=== PATIENT | male | born 1960 | race Caucasian/White ===

== ENCOUNTER 2019-03-22 11:38 | Inpatient (IN) | payer MEDICAID ==
[~2019-03-22] VITALS: Ht 175.3 cm; Wt 72.6 kg
[2019-03-22 11:48] VITALS: BP 153/102
--- NOTE | 2019-03-22 11:52 | NUR ---
Patient ambulated to bed 6. RN evaluating patient at bedside.
--- NOTE | 2019-03-22 12:00 | NUR ---
PT COMPLAINING OF PAIN 7/10 AT LFT LOWER LEG DUE TO INSECT BITE X 3 WEEKS. PT HAS OPEN WOUND, DARINAGE NOTED SLIGHT SEROUS SAINGENIOUS. NO ODOR NOTED AT THIS TIME. HAS REDNESS, WARM TO TOUCH THE PERIPHERAL REGION, 1+ PITTING EDEMA AT THE SURROUDING TISSUE. PT PEDAL PULSE PRESENCE, CAP REILL WITHIN NORMAL REGION, MOVEMENT OF LEG PRESENT. PT SEEN BY MD AT THE BEDSIDE. WILL CONTINUE TO MOTIOR PT.
--- NOTE | 2019-03-22 12:02 | NUR ---
Dr. Benavides evaluating patient at bedside.
[2019-03-22] MEDS ORDERED: NACL 0.9% 2,000 ML IV SCH (12:12)
[2019-03-22] MEDS ORDERED: KETOROLAC 60 MG/2 ML VIAL IM ONE (12:15)
[2019-03-22] MEDS ORDERED: PIPERACILLIN/TAZOBACTAM 3.375 GM in DEXT 5% MINI-BAG PLUS 50 ML IV ONE (12:15)
--- NOTE | 2019-03-22 12:52 | NUR ---
US tech at bedside for exam.
[2019-03-22] MEDS ORDERED: PIPERACILLIN/TAZOBACTAM 3.375 GM VIAL IV ONE (12:58)
--- NOTE | 2019-03-22 13:05 | NUR ---
XRAY AT BEDSIDE
[2019-03-22 13:14] LABS: BASOPHILS % (AUTO) 0.2 % (0.0-2.0); EOSINOPHILS # (AUTO) 0.1 K/uL (0-0.4); EOSINOPHILS % (AUTO) 0.7 % (0.0-4.0); HEMATOCRIT 37.9 % (36-52); HEMOGLOBIN 12.5 g/dL (12.0-18.0); LYMPHOCYTES # (AUTO) 1.4 K/uL (2.0-11.5); LYMPHOCYTES % (AUTO) 13.3 % (20.5-51.1); MEAN CORPUSCULAR HEMOGLOBIN 30 pg (27-31); MEAN CORPUSCULAR HGB CONC 33 g/dL (33-37); MEAN CORPUSCULAR VOLUME 89.9 fL (80-94); MONOCYTES # (AUTO) 1.2 K/uL (0.8-1.0); MONOCYTES % (AUTO) 11.5 % (1.7-9.3); NEUTROPHILS # (AUTO) 7.9 K/uL (1.8-7.7); NEUTROPHILS % (AUTO) 74.3 % (42.2-75.2); PLATELET COUNT (AUTO) 324 K/uL (140-450); RED BLOOD CELL COUNT(AUTO) 4.21 MIL/uL (4.20-6.10); RED CELL DISTRIBUTION WIDTH 14.2 % (11.6-13.7); WHITE BLOOD COUNT (AUTO) 10.7 K/uL (4.8-10.8)
--- NOTE | 2019-03-22 13:16 | NUR ---
pts wound was cleaned with saline and then coverred with a non adherent gauze
[2019-03-22 13:30] LABS: ANION GAP 8.6 (8-16); CARBON DIOXIDE 29.1 mmol/L (21-32); CREATININE 0.9 mg/dL (0.7-1.3); POTASSIUM 3.7 mmol/L (3.5-5.1)
[2019-03-22 13:36] LABS: ALBUMIN 2.9 g/dL (3.4-5.0); MAGNESIUM 2.2 mg/dL (1.8-2.4); TOTAL BILIRUBIN 0.4 mg/dL (0.0-1.0)
--- NOTE | 2019-03-22 13:59 | NUR ---
CHECKED ON PT. PT UNABLE TO PEE AT THIS TIME. URINAL AT BEDSIDE. PT AWARE OF URINE NEEDS TO BE COLLECTED.
[2019-03-22] MEDS ORDERED: DOCUSATE SODIUM 100 MG GELCAP PO PRN (14:00)
[2019-03-22] MEDS ORDERED: ONDANSETRON 4 MG/2 ML VIAL IM/IVP PRN (14:00)
[2019-03-22] MEDS ORDERED: HYDROcodone/APAP 7.5/325 MG 1 TAB PO PRN (14:00)
[2019-03-22] MEDS ORDERED: ACETAMINOPHEN 325 MG TAB PO PRN (14:00)
[2019-03-22 14:40] VITALS: BP 146/88
--- NOTE | 2019-03-22 14:40 | NUR ---
Patient will be admitted to care of . Admited to . Will go to room. Belongings list completed. Report to .
--- NOTE | 2019-03-22 14:40 | NUR ---
PT ADMITTED TO [facility] , REPORT GIVEN TO GEE BEE. PT VS STABLE.
--- NOTE | 2019-03-22 14:40 | NUR ---
RECEIVED REPORT FROM ED NURSE. PT ARRIVED VIA GURNEY, AND TRANSFERRED SELF WITH STEADY GAIT AND STANDBY ASSISTANCE TO [facility] BED. PT IS AAOX4, CALM AND COOPERATIVE. RESPIRATIONS ARE EVEN AND UNLABORED ON RA. IV ON LT HAND 18 GA IS PATENT AND RUNNING IVF PER ORDER. IV DRESSING IS CLEAN, DRY AND INTACT. STOMACH IS FLAT AND SOFT, ACTIVE BOWEL SOUNDS ON ALL QUADRANTS, LBM REPORTED ON 03/21/19. SKIN COLOR IS APPROPRIATE TO ETHNICITY, WARM TO TOUCH. LEFT LEG CELLULITIS NOTED AND SCABS THROUGHOUT BUE/BLE. 1+ PITTING EDEMA TO BILATERAL LOWER EXTREMITIES. REVIEWED PLAN OF CARE WITH PT. PT VERBALIZED UNDERSTANDING. SAFETY MEASURES IN PLACE, BED ON LOW POSITIONS WITH SIDE RAILS X2. WILL CONTINUE TO MONITOR. Addendum: 03/22/19 at 1857 by Neda Lau RN CORRECTION: 1+ PTTING EDEMA TO LT LEG, AREA OF CELLULITIS.
[2019-03-22] MEDS: NACL 0.9% 1,000 ML IV SCH (15:00)
[2019-03-22 15:07] LABS: FREE T4 (FREE THYROXINE) 0.99 ng/dL (0.76-1.46); PHOSPHORUS 3.2 mg/dL (2.5-4.9); THYROID STIMULATING HORMONE 1.22 uIU/mL (0.34-3.74)
[2019-03-22 16:22] LABS: APPEARANCE,URINE HAZY (CLEAR); BILIRUBIN,URINE NEGATIVE (NEGATIVE); BLOOD, URINE NEGATIVE (NEGATIVE); COLOR,URINE YELLOW (YELLOW); LEUKOCYTE ESTERASE ,URINE TRACE (NEGATIVE); NITRITE, URINE NEGATIVE (NEGATIVE); UGLUCOSE NEGATIVE (NEGATIVE)
[2019-03-22 16:31] LABS: RBC,URINE 0-5 /HPF (0-5); WBC,URINE 16-25 (MOD) /HPF (0-5)
[2019-03-22 16:32] LABS: URINE AMORPHOUS URATE 2+ /HPF (None Seen)
[2019-03-22 16:36] LABS: BARBITURATE, URINE NEG. ng/ml (NEG <=200); BENZODIAZEPINE, URINE NEG. ng/mL (NEG <=200); CANNABINOID, URINE POS. ng/mL (NEG <=50); COCAINE, URINE NEG. ng/mL (NEG <=300); OPIATE, URINE NEG. ng/mL (NEG <=2000); PHENCYCLIDINE SCREEN,URINE NEG. ng/mL (NEG <=25)
--- NOTE | 2019-03-22 17:15 | NUR ---
REVIEWED EKG ORDER WITH DR. MELVA CHUN DIRECTOR OF PUBLIC WORKS TO READ CHANGE TO DR LYNCH
--- NOTE | 2019-03-22 18:00 | NUR ---
DR. ARROYO AT BEDSIDE. WOUND DRESSING ORDER RECEIVED. CLEANSE LT LOWER LEG CELLULITIS GENTLY WITH NS, PAT DRY, COVER WITH 4X4 DRESSING AND WRAP WITH KERLIX DAILY AND PRN.
--- NOTE | 2019-03-22 18:10 | NUR ---
WOUND DRESSING CHANGED. MINIMAL DISCHARGE AND NO ODOR NOTED. PT TOLERATED WELL. PT SIGNED CONSENT FOR PROCEDURE TO BE DONE TOMORROW. PT VERBALIZED UNDERSTANDING, QUESTIONS WERE CLARIFIED.
--- NOTE | 2019-03-22 19:10 | NUR ---
REPORT GIVEN TO LOUNGE CAR ATTENDANT NURSE FOR CONTINUITY OF CARE. PT IS IN NO DISTRESS AT THIS TIME.
--- NOTE | 2019-03-22 19:30 | NUR ---
RECEIVED BEDSIDE REPORT FROM DAY SHIFT RN, PATIENT IN BED, ON RA, NO SIGNS OF ACTE DISTRESS. PATIENT DENIES PAIN, NOTED LEFT LEG CELLULITIS, DRESSING INTACT, NOTED SCABS IN RIGHT LEG, CLOSED. IV IN RIGHT AC 22 G. PATIENT ASKED FOR SANDWICH WILL GIVE SANDWICH. Addendum: 03/23/19 at 0110 by Odessa Thomas RN LEFT FA 18 INFUSING NS AT 60
[2019-03-22] MEDS: AMPICILLIN/SULBACTAM 3 GM in NACL 0.9% 100 ML IV SCH (20:31)
--- NOTE | 2019-03-22 20:34 | NUR ---
DUE UNASYN GIVEN
--- NOTE | 2019-03-22 23:00 | NUR ---
PATIENT SLEEPING IN BED CALL LIGHT WITHIN REACH WILL CONTINUE TO MONITOR
[2019-03-23] VITALS (9 sets, daily range): BP systolic 143–165; BP diastolic 89–98
--- NOTE | 2019-03-23 00:46 | NUR ---
PRE OP QUESTIONS ANSWERED, DRESSING ON LEFT LEG CELLULITIS CLEAN AND INTACT.
--- NOTE | 2019-03-23 03:52 | NUR ---
SLEEPING IN BED, CALL LIGHT WITHIN REACH, WILL CONTINUE TO MONITOR
[2019-03-23] MEDS: AMPICILLIN/SULBACTAM 3 GM in NACL 0.9% 100 ML IV SCH ×3 (04:33→20:42)
[2019-03-23] MEDS: NACL 0.9% 1,000 ML IV SCH ×3 (06:00→13:01)
[2019-03-23 06:21] LABS: T4 (THYROXINE) 5.4 ug/dL (4.5-12.0)
[2019-03-23 06:24] LABS: BASOPHILS % (AUTO) 0.3 % (0.0-2.0); EOSINOPHILS # (AUTO) 0.1 K/uL (0-0.4); EOSINOPHILS % (AUTO) 1.2 % (0.0-4.0); HEMATOCRIT 35.2 % (36-52); HEMOGLOBIN 11.9 g/dL (12.0-18.0); LYMPHOCYTES # (AUTO) 1.4 K/uL (2.0-11.5); LYMPHOCYTES % (AUTO) 12.1 % (20.5-51.1); MEAN CORPUSCULAR HEMOGLOBIN 30 pg (27-31); MEAN CORPUSCULAR HGB CONC 34 g/dL (33-37); MEAN CORPUSCULAR VOLUME 89.1 fL (80-94); MONOCYTES % (AUTO) 8.6 % (1.7-9.3); NEUTROPHILS # (AUTO) 9.3 K/uL (1.8-7.7); NEUTROPHILS % (AUTO) 77.8 % (42.2-75.2); PLATELET COUNT (AUTO) 326 K/uL (140-450); RED BLOOD CELL COUNT(AUTO) 3.95 MIL/uL (4.20-6.10); RED CELL DISTRIBUTION WIDTH 13.8 % (11.6-13.7); WHITE BLOOD COUNT (AUTO) 11.9 K/uL (4.8-10.8)
--- NOTE | 2019-03-23 06:26 | NUR ---
LABS DRAWN AND SENT TO LAB
[2019-03-23 06:35] LABS: ANION GAP 11.6 (8-16); CARBON DIOXIDE 25.2 mmol/L (21-32); CREATININE 0.9 mg/dL (0.7-1.3); POTASSIUM 3.8 mmol/L (3.5-5.1)
--- NOTE | 2019-03-23 07:24 | NUR ---
RECEIVED BEDSIDE REPORT FROM GEE VILLALOBOS. PT STABLE, SLEEPING, BUT EASILY AROUSABLE. NO SIGNS OF DISTRESS NOTED. NO REDNESS, SWELLING, OR INFLAMMATION NOTED ON IV SITE. PT NPO FOR SCHEDULED I&D TODAY. CALL LUCERO WITHIN REACH. BED IN LOWEST POSITION. SAFETY MEASURES IN PLACE. PLAN OF CARE REVIEWED.
--- NOTE | 2019-03-23 07:25 | NUR ---
ENDORSED PATIENT TO DAY SHIFT NURSE FOR CONTINUITY OF CARE. PATIENT STABLE.
--- NOTE | 2019-03-23 09:48 | NUR ---
PT STABLE, AAOX4, NO SIGNS OF DISTRESS NOTED. AWAITING ON SURGERY.
--- NOTE | 2019-03-23 10:05 | NUR ---
PT WAS TAKEN TO THE OR FOR I&D OF THE LEFT LEG CELLULITIS.
[2019-03-23] MEDS ORDERED: PROPOFOL 200 MG/20 ML VIAL IV ONE (10:43)
[2019-03-23] MEDS ORDERED: KETAMINE 500 MG/5 ML VIAL ONE (10:48)
[2019-03-23] MEDS ORDERED: MIDAZOLAM 2 MG/2 ML VIAL ONE (10:49)
[2019-03-23] MEDS ORDERED: BUPIVACAINE-MPF/EPI 0.25% 30 ML VIAL INJ ONE (10:58)
[2019-03-23] MEDS ORDERED: ONDANSETRON 4 MG/2 ML VIAL IVP PRN (11:00)
[2019-03-23] MEDS ORDERED: HYDROmorphone 1 MG/ML AMP IVP PRN (11:00)
[2019-03-23] MEDS ORDERED: HYDROGEN PEROXIDE 3% 240 ML BTL TP ONE (11:01)
--- NOTE | 2019-03-23 12:00 | NUR ---
PT CAME BACK IN THE UNIT FROM OR. RECEIVED BEDSIDE REPORT FROM STRATEGIC ACCOUNT DIRECTORGEE CAMPBELL. VITAL SIGNS TAKEN, PT STABLE. NO SIGNS OF DISTRESS NOTED.
[2019-03-23] MEDS: LIDOCAINE/EPI MPF 1%1:200000 30 ML VIAL INJ ONE ×2 (12:20→14:03)
--- NOTE | 2019-03-23 12:46 | NUR ---
ADMINISTERED SCHEDULED MEDICATION, PT TOLERATED WELL. NO OTHER NEEDS AT THIS TIME.
--- NOTE | 2019-03-23 14:00 | NUR ---
D/C IV ON LEFT FA 18G DUE TO INFILTRATION, CATHETER TIP INTACT, BLEEDING CONTROLLED. INSERTED ANOTHER IV ON RIGHT FA 20G, ASYMPTOMATIC, INTACT, AND PATENT. PT TOLERATED WELL. NO OTHER NEEDS AT THIS TIME.
--- NOTE | 2019-03-23 16:30 | NUR ---
VITAL SIGNS TAKEN, BP 165/97. MADE DR MIRANDA AWARE OF PT'S BP. MD WILL PUT IN NEW ORDER.
[2019-03-23] MEDS ORDERED: LISINOPRIL 5 MG TAB PO SCH (16:50)
--- NOTE | 2019-03-23 16:50 | NUR ---
DR MIRANDA PUT IN ORDER FOR LISINOPRIL AND HYDROCHLOROTHIAZIDE FOR PT'S BP 165/97. PER DR MIRANDA, GIVE LISINOPRIL ONLY AT THIS TIME AND ENDORSE HYDROCHLOROTHIAZIDE TO PM NURSE TO PREVENT PT'S BP FROM DECREASING DRASTICALLY. WAITING FOR PHARMACY TO VERIFY MEDICATIONS.
--- NOTE | 2019-03-23 17:57 | NUR ---
PHARMACY JUST VERIFIED LISINOPRIL AND HYDROCHLOROTHIAZIDE. ADMINISTERED SCHEDULED LISINOPRIL PER DR MIRANDA'S ORDER. PER DR MIRANDA, GIVE LISINOPRIL ONLY AT THIS TIME AND ENDORSE SCHEDULED HYDROCHLOROTHIAZIDE TO PM NURSE TO BE GIVEN AT 2100.
--- NOTE | 2019-03-23 19:20 | NUR ---
ENDORSED PT TO GEE ROCHA FOR CONTINUITY OF CARE. PT STABLE.
--- NOTE | 2019-03-23 19:21 | NUR ---
RECEIVED BEDSIDE REPORT FROM AM SHIFT NURSE. PT AWAKE, ALERT, O, X 4 STABLE, NO SIGNS OF DISTRESS NOTED. POST I&D TODAY, W/ DRESSING IN PLACE, DRY. W/ ONGOING IV ON THE R FA G 20. CALL LUCERO WITHIN REACH. BED IN LOWEST POSITION. SAFETY MEASURES IN PLACE. PLAN OF CARE REVIEWED.
[2019-03-23] MEDS: HYDROCHLOROTHIAZIDE 25 MG TAB PO SCH ×2 (20:41→21:16)
--- NOTE | 2019-03-23 21:13 | NUR ---
DR. KENNY INFORMED, WAS ENDORSED BY AM SHIFT TO GIVE THE 1650 MEDS FOR 2100. AWARE AND SAID TO GO AHEAD TO GIVE THE ORETIC(BOP MEDS) BOP 156/90 AND HR 73
--- NOTE | 2019-03-23 21:50 | NUR ---
LAB CALLED FOR CRITICAL RESULT: LEG ABSCESS CULTURE: MANY OPRESUMPTIVE MRSA; MANY B-GRP STREP A DR. CANNON INFORMED
--- NOTE | 2019-03-23 22:09 | NUR ---
MRSA POSITIVE NARES REPORTED BY LAB MENARD
--- NOTE | 2019-03-24 03:26 | NUR ---
PLACED CHLORHEXIDINE ORDERED BT ON BOTH NOSTRILS, PT TOLERATED WELL.
[2019-03-24 04:00] VITALS: BP 124/91
[2019-03-24] MEDS: AMPICILLIN/SULBACTAM 3 GM in NACL 0.9% 100 ML IV SCH ×2 (05:12→12:36)
[2019-03-24] MEDS: NACL 0.9% 1,000 ML IV SCH (06:16)
--- NOTE | 2019-03-24 06:16 | NUR ---
FNS consult received on 03/22/19 for wound/pressure ulcer (cellulitis). Consult reason does not meet high risk criteria per hospital policy. Patient will be seen and assessed according to the nutrition care policy. Oumou Godoy MS, RDN
--- NOTE | 2019-03-24 06:31 | NUR ---
PATIENT HAS BEEN SCREENED AND CATEGORIZED LOW NUTRITION RISK. PATIENT WILL BE SEEN WITHIN 7 DAYS OF ADMISSION. 03/29/19 QIANA JUAREZ MS, RDN
--- NOTE | 2019-03-24 07:20 | NUR ---
ENDORSED TO NEXT SHIFT FOR CONTINUITY OF CARE, PT IN STABLE CONDITION AT THIS TIME
--- NOTE | 2019-03-24 07:21 | NUR ---
RECEIVED BEDSIDE REPORT FROM NIGHT NURSE. PT HAS 60 ML/HR NS IN RIGHT FOREARM IV ASYMPTOMATIC AND PATENT. ALL SAFETY MEASURES IN PLACE, CALL LIGHT WITHIN REACH. PT AOX4, BREATHING UNLABORED NO DISTRESS AT THIS TIME. PT HAS LEFT SYED BANDAGE THAT IS DRY AND INTACT.
[2019-03-24 08:00] VITALS: BP 145/92
--- NOTE | 2019-03-24 08:00 | NUR ---
DR ARZOLA AT BEDSIDE REQUESTING I REMOVE BANDAGE SO HE CAN ASSESS. DID THIS AND THEN HE STATED HE WANTS EITHER IDOFORM GAUZE PACKED OR DRY GAUZE PACKED AND THEN 4X4 ON TOP AND WRAPPED WITH KERLIX SECURE WITH TAPE. PERFORMED THIS WOUNDCARE AT THIS TIME. PT TOLERATED WELL, NO SIGNS OF DISTRESS.
[2019-03-24 08:08] LABS: BASOPHILS % (AUTO) 0.5 % (0.0-2.0); EOSINOPHILS # (AUTO) 0.1 K/uL (0-0.4); EOSINOPHILS % (AUTO) 1.4 % (0.0-4.0); HEMATOCRIT 36.4 % (36-52); HEMOGLOBIN 12.3 g/dL (12.0-18.0); LYMPHOCYTES # (AUTO) 1.8 K/uL (2.0-11.5); LYMPHOCYTES % (AUTO) 17.4 % (20.5-51.1); MEAN CORPUSCULAR HEMOGLOBIN 30 pg (27-31); MEAN CORPUSCULAR HGB CONC 34 g/dL (33-37); MEAN CORPUSCULAR VOLUME 89.1 fL (80-94); MONOCYTES # (AUTO) 1.1 K/uL (0.8-1.0); MONOCYTES % (AUTO) 10.6 % (1.7-9.3); NEUTROPHILS # (AUTO) 7.4 K/uL (1.8-7.7); NEUTROPHILS % (AUTO) 70.1 % (42.2-75.2); PLATELET COUNT (AUTO) 366 K/uL (140-450); RED BLOOD CELL COUNT(AUTO) 4.09 MIL/uL (4.20-6.10); RED CELL DISTRIBUTION WIDTH 13.7 % (11.6-13.7); WHITE BLOOD COUNT (AUTO) 10.5 K/uL (4.8-10.8)
[2019-03-24 09:00] LABS: ANION GAP 12.6 (8-16); CARBON DIOXIDE 25.3 mmol/L (21-32); CREATININE 0.9 mg/dL (0.7-1.3); POTASSIUM 3.9 mmol/L (3.5-5.1)
[2019-03-24] MEDS: LISINOPRIL 10 MG TAB PO SCH (09:49)
[2019-03-24] MEDS: CHLORHEXADINE GLUC 2% CLOTH TP SCH (09:49)
[2019-03-24] MEDS: MUPIROCIN CA NASAL 2% 1GM TUBE NS SCH (09:49)
--- NOTE | 2019-03-24 09:54 | NUR ---
ADMINISTERED MEDICATIONS INCLUDING WIPING PATIENT SKIN WITH CHLORHEXIDINE WIPES. PT TOLERATED WELL NO SIGNS OF DISTRESS AT THIS TIME. PT REQUESTING MORE PANCAKES WILL CALL FNS.
[2019-03-24] MEDS ORDERED: LACTOBACILLUS RHAMNOSUS GG 1 EACH CAP PO SCH (10:30)
--- NOTE | 2019-03-24 10:44 | NUR ---
ADMINISTERED MEDICATIONS, PT SITTING UP IN BED EATING HIS SANDWICH WITH NO DISTRESS AND NO REQUESTS AT THIS TIME.
--- NOTE | 2019-03-24 11:00 | NUR ---
RECEIVED PHONE CALL FROM PT GIRLFRIEND REQUESTING TO TALK TO HIM. HELPED PATIENT MAKE PHONE CALL TO CALL HER. NO OTHER REQUESTS.
--- NOTE | 2019-03-24 12:18 | NUR ---
PT SITTING UP IN BED EATING LUNCH WITH NO REQUESTS AT THIS TIME.
[2019-03-24] MEDS ORDERED: CLINDAMYCIN 900 MG in DEXTROSE 5% 100 ML IV SCH (13:00)
--- NOTE | 2019-03-24 14:09 | NUR ---
ADMINISTERED IV MEDICATION. PATIENT RESTING IN BED NO REQUESTS NO SIGNS OF DISTRESS.
--- NOTE | 2019-03-24 15:35 | NUR ---
PT SLEEPING IN BED NO LABORED BREATHING OR SIGNS OF DISTRESS. DRESSING DRY AND INTACT.
[2019-03-24 16:00] VITALS: BP 139/85
--- NOTE | 2019-03-24 16:40 | NUR ---
PT SLEEPING IN BED BREATHING UNLABORED AND EVEN.
--- NOTE | 2019-03-24 17:52 | NUR ---
PT SITTING UP IN BED WATCHING TV. DENIES ANY REQUESTS AT THIS TIME. NO OBVIOUS SIGNS OF DISTRESS, BREATHING IS UNLABORED.
[2019-03-24] MEDS ORDERED: VANCOMYCIN PER PHARMACY MC PRN (18:05)
[2019-03-24] MEDS ORDERED: VANCOMYCIN 1,000 MG VIAL ONE (18:46)
[2019-03-24] MEDS ORDERED: VANCOMYCIN 1GM/DEXT 5% PREMIX 200 ML IV ONE (19:00)
--- NOTE | 2019-03-24 19:30 | NUR ---
GAVE BEDSIDE REPORT TO NIGHT NURSE PT WAS WONDERING HALLS. EXPLAINED TO PT THAT HE IS ON CONTACT FOR THE MRSA OF THE NARES AND PROVIDED HIM WITH A MASK. CHARGE NURSE EXPLAINED TO HIM THAT HE HAS TO STAY IN HIS ROOM FOR HIS CONTACT ISOLATION.
--- NOTE | 2019-03-24 19:31 | NUR ---
RECEIVED BEDSIDE REPORT FROM DAY SHIFT RN KANG. PT A/O X4. DISCUSSED PLAN OF CARE. VERBALIZED UNDERSTANDING. ABLE TO MAKE NEEDS KNOWN. CONTACT PRECAUTIONS MRSA-NARES. ROOM AIR. NO SIGNS OF RESP DISTRESS. SKIN IS NON INTACT. LEFT LEG CELLULITIS. DRESSING IS CLEAN DRY AND INTACT. R FA 20 G INFUSING NS @60. PATENT AND INTACT. ABLE TO AMBULATE WITHOUT ASSIST. STEADY GAIT. BED IN LOW POSITION. CALL LIGHT WITHIN REACH. WILL CONTINUE TO MONITOR.
--- NOTE | 2019-03-24 20:57 | NUR ---
REQUESTED ICE WATER AND COFFEE. GIRLFRIEND AT BEDSIDE. PT STATED HE IS NON COMPLIANT WITH TAKING HTN MEDS AT HOME DUE TO ALWAYS BEING UP AND ACTIVE SO HE FEELS HE DOESN'T NEED THEM. I EDUCATED ON IMPORTANCE OF TAKING HOME MEDICATIONS PRESCRIBED, SIDE EFFECTS AND WHAT EACH MEDICATION IS FOR. VERBALIZED UNDERSTANDING. WILL CONTINUE TO MONITOR.
--- NOTE | 2019-03-24 23:00 | NUR ---
REQUESTED SANDWICH AND WATER. REPOSITIONED. DENIES PAIN. NO SIGNS OF RESP DISTRESS. WILL CONTINUE TO MONITOR.
[2019-03-25] VITALS: BP 126/89
--- NOTE | 2019-03-25 01:13 | NUR ---
PT IS SLEEPING. EASILY AROUSABLE. EVEN CHEST RISE NOTED. NO SIGNS OF DISTRESS OR DISCOMFORT. BED IN LOW POSITION. WILL CONTINUE TO MONITOR.
--- NOTE | 2019-03-25 03:13 | NUR ---
SLEEPING IN BED. EASILY AROUSABLE. DENIES PAIN. NO SIGNS OF DISTRESS NOTED. WILL CONTINUE TO MONITOR.
--- NOTE | 2019-03-25 05:15 | NUR ---
PT SLEEPING IN BED NO SIGNS OF DISTRESS. EVEN CHEST RISE. NO PAIN AT THIS TIME. CALL LIGHT WITHIN REACH. WILL CONTINUE TO MONITOR.
--- NOTE | 2019-03-25 06:20 | NUR ---
WILL ENDORSE PT TO DAY SHIFT RN. PT IS IN STABLE CONDITION. A/O X 4 ABLE TO MAKE NEEDS KNOWN. CALL LIGHT WITHIN REACH.
[2019-03-25 06:52] LABS: BASOPHILS # (AUTO) 0.1 K/uL (0.00-0.22); BASOPHILS % (AUTO) 0.7 % (0.0-2.0); EOSINOPHILS # (AUTO) 0.2 K/uL (0-0.4); EOSINOPHILS % (AUTO) 2.6 % (0.0-4.0); HEMATOCRIT 33.6 % (36-52); HEMOGLOBIN 11.1 g/dL (12.0-18.0); LYMPHOCYTES # (AUTO) 1.6 K/uL (2.0-11.5); LYMPHOCYTES % (AUTO) 23.7 % (20.5-51.1); MEAN CORPUSCULAR HEMOGLOBIN 30 pg (27-31); MEAN CORPUSCULAR HGB CONC 33 g/dL (33-37); MEAN CORPUSCULAR VOLUME 89.8 fL (80-94); MONOCYTES # (AUTO) 0.7 K/uL (0.8-1.0); MONOCYTES % (AUTO) 9.4 % (1.7-9.3); NEUTROPHILS # (AUTO) 4.4 K/uL (1.8-7.7); NEUTROPHILS % (AUTO) 63.6 % (42.2-75.2); PLATELET COUNT (AUTO) 332 K/uL (140-450); RED BLOOD CELL COUNT(AUTO) 3.75 MIL/uL (4.20-6.10); RED CELL DISTRIBUTION WIDTH 14.1 % (11.6-13.7); WHITE BLOOD COUNT (AUTO) 6.9 K/uL (4.8-10.8)
--- NOTE | 2019-03-25 07:16 | NUR ---
RECEIVED REPORT FROM LAYOUT WORKER NURSE MICHAEL FOR CONTINUITY OF CARE. PT IN STABLE CONDITION. RESPIRATIONS EVEN AND UNLABORED. IV INTACT AND PATENT. SAFETY MEASURES IN PLACE. BED IN LOW POSITION. CALL LIGHT AT BEDSIDE, USE INSTRUCTIONS GIVEN. WILL CONTINUE TO MONITOR.
[2019-03-25 07:17] LABS: ANION GAP 11.9 (8-16); CARBON DIOXIDE 24.8 mmol/L (21-32); CREATININE 0.9 mg/dL (0.7-1.3); MAGNESIUM 1.9 mg/dL (1.8-2.4); PHOSPHORUS 3.5 mg/dL (2.5-4.9); POTASSIUM 3.7 mmol/L (3.5-5.1)
[2019-03-25 08:00] VITALS: BP 124/88
[2019-03-25] MEDS: NACL 0.9% 1,000 ML IV SCH (08:38)
[2019-03-25] MEDS ORDERED: LACTOBACILLUS RHAMNOSUS GG 1 EACH CAP PO SCH (09:00)
[2019-03-25] MEDS ORDERED: VANCOMYCIN 1GM/DEXT 5% PREMIX 200 ML IV SCH (09:00)
[2019-03-25] MEDS ORDERED: CEPH-1019 PO (09:08)
[2019-03-25] MEDS ORDERED: SULF-59 PO (09:08)
[2019-03-25] MEDS ORDERED: INUL1CTB PO (09:08)
--- NOTE | 2019-03-25 09:15 | NUR ---
GAVE MORNING MEDICATIONS AT THIS TIME. PT TOLERATED WELL. CALL LIGHT AT BEDSIDE. BED IN LOW POSITION. WILL CONTINUE TO MONITOR.
[2019-03-25] MEDS: LISINOPRIL 10 MG TAB PO SCH (09:21)
[2019-03-25] MEDS: MUPIROCIN CA NASAL 2% 1GM TUBE NS SCH (09:21)
[2019-03-25] MEDS: CHLORHEXADINE GLUC 2% CLOTH TP SCH (09:22)
--- NOTE | 2019-03-25 10:07 | NUR ---
WOUND CARE EVALUATION NOTE: REASON FOR EVALUATION: LEFT LOWER LEG SURGICAL WOUND SKIN ASSESSMENT DONE WITH THIS 58 Y/O MALE PT. ADMITTED TO [facility] WITH INITIAL DX OF ABSCESS LLE. NO SIGNIFICANT PAST MEDICAL HX. PT. ALL ABOVE INFORMATION OBTAINED FROM PT. PT IS AAX4. PT SKIN IS WARM AND SCALY, BLE FEW HAIRS GROWTH, DORSAL PEDAL PULSES PRESENT. PLAN OF CARE DISCUSSED WITH PRIMARY RN. AND PT. WOUND CARE TEACHING DONE PT VERBALIZES UNDERSTAND. INTEGUMENTARY -LEFT LOWER LEG S/P ABSCESS SURGICAL WOUND, 4X5X0.5 CM WITH NO UNDERMINING, WOUND BED 100% GRANULATION TISSUE, MOIST, NO ODOR, ASTRID WOUND SKIN INTACT, WITH NO ERYTHREDEMA AND SURROUNDING REDNESS IMPROVING -MULTIPLE DRY SCABS TO UPPER AND LOWER EXTREMITIES WITH LARGEST TO RIGHT LATERAL KNEE 3X3 CM DRY BROWN SCAB RECOMMENDATIONS: -CLEANSE LEFT LOWER LEG S/P I&D SURGICAL WOUND WITH NS. PAT DRY, PACK WITH ADAPTIC DRESSING TO WOUND BED AND COVER WITH DRY DRESSING, WRAP WITH GIL BANDAGE QD AND PRN IF SOILING. -PAINT MULTIPLE SCABS TO UPPER AND LOWER EXTREMITIES WITH BETADINE SOLUTION BID AND LEAVE IT OPEN TO AIR -TURN AND REPOSITION PATIENT Q 2H OFFLOAD LEFT AND RIGHT HIPS -MAY DISCHARGE PT. WITH WOUND CARE SUPPLIES, PT. TO FOLLOW UP WITH PHYSICIAN TO OUT PATIENT CLINIC. RECOMMENDATIONS DISCUSSED WITH PRIMARY RN AND DR. LYNN PLEASE CONTACT WOUND CARE NURSE FOR ANY QUESTIONS AND CHANGES IN SKIN CONDITION.
--- NOTE | 2019-03-25 11:10 | NUR ---
GAVE DISCHARGE INSTRUCTIONS AND INFORMED PT WHERE TO PIERCING ARTIST PHARMACY PRESCRIPTION MEDICATION, PT VERBALIZED UNDERSTANDING OF INSTRUCTIONS. PT WAS GIVEN SUPPLIES AND INSTRUCTIONS ON HOW TO PACK LEFT LEG WOUND, PT VERBALIZED UNDERSTANDING OF INSTRUCTIONS. IV REMOVED, LUMEN INTACT. ID BAND REMOVED. PT REFUSED WHEELCHAIR. HOMELESS PACKET NOT GIVEN. PT STATED "I HAVE A HOME". ESCORTED PT TO LOBBY WHERE FRIEND WAS WAITING WITH VEHICLE. PT IN STABLE CONDITION.
[2019-03-25] MEDS ORDERED: GAUZE TP SCH (13:00)
== END 2019-03-25 11:10 | disposition home or self-care (01) | DRG 361 ==
LOC: MED 11:38 → MTU 13:58
PROVIDERS: ADMIT General Practice; ATTEND General Practice
PROC: 3E0234Z Introduction of Serum, Toxoid and Vaccine into Muscle, Percutaneous Approach (ICD-10-PCS; 2019-03-22)
PROC: 0YBJ0ZZ Excision of Left Lower Leg, Open Approach (ICD-10-PCS; principal; 2019-03-23 09:00)
DX: L02.416 Cutaneous abscess of left lower limb (principal); E44.0 Moderate protein-calorie malnutrition; L97.929 Non-pressure chronic ulcer of unspecified part of left lower leg with unspecified severity; E87.1 Hypo-osmolality and hyponatremia; L03.116 Cellulitis of left lower limb; N39.0 Urinary tract infection, site not specified; I10 Essential (primary) hypertension; F12.10 Cannabis abuse, uncomplicated; F15.10 Other stimulant abuse, uncomplicated; B95.62 Methicillin resistant Staphylococcus aureus infection as the cause of diseases classified elsewhere; B95.0 Streptococcus, group A, as the cause of diseases classified elsewhere; Z68.23 Body mass index [BMI] 23.0-23.9, adult; Z59.0 Homelessness; Z23 Encounter for immunization; Z80.0 Family history of malignant neoplasm of digestive organs; Z71.51 Drug abuse counseling and surveillance of drug abuser
CPT/HCPCS: 36415; 71045; 73590; 80048; 80053; 80305; 81001; 82150; 83036; 83605; 83690; 83735; 83880; 84100; 84436; 84439; 84443; 84479; 84484; 85025; 85379; 85610; 85730; 87040; 87070; 87075; 87081; 87086; 87186; 87205; 88304; 90471; 90715; 93005; 93971; 96365; 96372; 99285; J0295; J1885; J2001; J2250; J2543; J2704; J3370; J3490; J7030; J7060; Q0092

== ENCOUNTER 2019-07-13 22:48 | Inpatient (IN) | payer SELFPAY ==
[~2019-07-13] VITALS: Ht 175.3 cm; Wt 73.0 kg
[~2019-07-13 22:48] MED LIST: CEPH-1019 PO; INUL1CTB PO; SULF-59 PO
[2019-07-13 22:53] VITALS: BP 163/93
--- NOTE | 2019-07-13 22:59 | NUR ---
PT TAKEN TO BED 6
--- NOTE | 2019-07-13 23:08 | NUR ---
PT C/O CELLULITIS TO RT ARM X1 WEEK. OPEN SORE, APPEARS TO HAVE NECROTIC TISSUE. SWELLING TO RT HAND. ABLE TO MOVE FINGERS. PT STATES HE BUMPED SORE AND STARTED BLEEDING TODAY, BLEEDING CONTROLLED AT THIS TIME. PT STATES TINGLING TO FINGERS ON RT HAND. PT BELIEVED CELLULITIS WAS HEALING DUE TO SWELLING GOING DOWN, HAS NOT BEEN SEEN FOR THIS BEFORE. PT IS IN NO DISTRESS AT THIS TIME. VSS. MEDHX: HTN ALLERGIES: DENIES
--- NOTE | 2019-07-13 23:34 | NUR ---
Dr. Milian examing patient.
[2019-07-13] MEDS ORDERED: NACL 0.9% 1,000 ML IV ONE (23:38)
[2019-07-13] MEDS ORDERED: PIPERACILLIN/TAZOBACTAM 3.375 GM in DEXTROSE 5% 50 ML IV ONE (23:40)
[2019-07-13] MEDS ORDERED: VANCOMYCIN 1,000 MG in DEXTROSE 5% 250 ML IV ONE (23:40)
--- NOTE | 2019-07-13 23:54 | NUR ---
X-Ray at bedside.
[2019-07-14] MEDS ORDERED: KETOROLAC 30 MG/ML VIAL IVP ONE (00:10)
[2019-07-14] MEDS ORDERED: ONDANSETRON 4 MG/2 ML VIAL IVP ONE (00:10)
[2019-07-14] MEDS ORDERED: MORPHINE SULFATE 4 MG/ML SYR IVP ONE (00:10)
[2019-07-14 00:11] LABS: BASOPHILS % (AUTO) 0.2 % (0.0-2.0); EOSINOPHILS # (AUTO) 0.1 K/uL (0-0.4); EOSINOPHILS % (AUTO) 0.5 % (0.0-4.0); HEMOGLOBIN 11.4 g/dL (12.0-18.0); LYMPHOCYTES % (AUTO) 8.9 % (20.5-51.1); MEAN CORPUSCULAR HEMOGLOBIN 29 pg (27-31); MEAN CORPUSCULAR HGB CONC 33 g/dL (33-37); MEAN CORPUSCULAR VOLUME 90.1 fL (80-94); MONOCYTES # (AUTO) 1.3 K/uL (0.8-1.0); MONOCYTES % (AUTO) 11.3 % (1.7-9.3); PLATELET COUNT (AUTO) 247 K/uL (140-450); RED BLOOD CELL COUNT(AUTO) 3.89 MIL/uL (4.20-6.10); WHITE BLOOD COUNT (AUTO) 11.4 K/uL (4.8-10.8)
[2019-07-14 00:25] LABS: CARBON DIOXIDE 25.4 mmol/L (21-32); CREATININE 0.8 mg/dL (0.7-1.3); POTASSIUM 3.4 mmol/L (3.5-5.1); PROTHROMBIN TIME 9.8 secs (10.8-13.4); TOTAL BILIRUBIN 0.5 mg/dL (0.0-1.0)
[2019-07-14] MEDS ORDERED: PIPERACILLIN/TAZOBACTAM 3.375 GM VIAL IV ONE (00:27)
[2019-07-14] MEDS ORDERED: VANCOMYCIN 1,000 MG VIAL ONE (00:27)
[2019-07-14 00:46] LABS: NEUTROPHILS % (AUTO) 79.1 % (42.2-75.2)
--- NOTE | 2019-07-14 00:58 | NUR ---
PT TAKEN TO CT
--- NOTE | 2019-07-14 01:17 | NUR ---
PT RETURN FROM CT
--- NOTE | 2019-07-14 01:21 | NUR ---
PT RETURNED FROM CT, MEDICATIONS WILL CONTINUE TO INFUSE. WILL CONTINUE TO MONITOR. VSS.
--- NOTE | 2019-07-14 01:29 | NUR ---
PT STOOD UP TO URINATE IN URINAL AND IV GOT PULLED OUT. WILL INSERT NEW IV AFTER URINE COLLECTION.
--- NOTE | 2019-07-14 01:35 | NUR ---
18G IV PLACED IN LT AC.
[2019-07-14] MEDS ORDERED: HYDROcodone/APAP 5/325 MG 1 TAB TAB PO PRN (01:40)
[2019-07-14] MEDS ORDERED: DOCUSATE SODIUM 100 MG GELCAP PO PRN (01:40)
[2019-07-14] MEDS ORDERED: ACETAMINOPHEN 325 MG TAB PO PRN (01:40)
[2019-07-14] MEDS ORDERED: ZOLPIDEM 5 MG TAB PO PRN (01:40)
[2019-07-14] MEDS ORDERED: ONDANSETRON 4 MG/2 ML VIAL IM/IVP PRN (01:40)
--- NOTE | 2019-07-14 01:48 | NUR ---
Dr. Cuenca examining patient.
[2019-07-14] MEDS ORDERED: VANCOMYCIN PER PHARMACY MC PRN (02:10)
[2019-07-14] MEDS ORDERED: POTASSIUM CHLORIDE 10 MEQ TABER PO SCH (02:15)
[2019-07-14 02:22] LABS: FREE T4 (FREE THYROXINE) 0.93 ng/dL (0.76-1.46); MAGNESIUM 1.8 mg/dL (1.8-2.4); PHOSPHORUS 3.6 mg/dL (2.5-4.9); THYROID STIMULATING HORMONE 1.8 uIU/mL (0.34-3.74)
[2019-07-14 02:31] LABS: BARBITURATE, URINE NEG. ng/ml (NEG <=200); BENZODIAZEPINE, URINE NEG. ng/mL (NEG <=200); CANNABINOID, URINE POS. ng/mL (NEG <=50); COCAINE, URINE NEG. ng/mL (NEG <=300); OPIATE, URINE POS. ng/mL (NEG <=2000); PHENCYCLIDINE SCREEN,URINE NEG. ng/mL (NEG <=25)
[2019-07-14 02:37] LABS: APPEARANCE,URINE CLEAR (CLEAR); BILIRUBIN,URINE NEGATIVE (NEGATIVE); BLOOD, URINE TRACE-I (NEGATIVE); COLOR,URINE YELLOW (YELLOW); LEUKOCYTE ESTERASE ,URINE NEGATIVE (NEGATIVE); NITRITE, URINE NEGATIVE (NEGATIVE); UGLUCOSE NEGATIVE (NEGATIVE)
--- NOTE | 2019-07-14 02:45 | NUR ---
RECEIVED REPORT FROM RUBIA. PT ON BED ASLEEP. NO SIGNS OF DISTRESS.
[2019-07-14 02:52] LABS: CALCIUM OXALATE CRYSTALS,UR 0-3 /HPF (None Seen); RBC,URINE 0-5 /HPF (0-5); WBC,URINE 20-60 /HPF (0-5)
--- NOTE | 2019-07-14 03:28 | NUR ---
Patient will be admitted to care of DR. ROMANO. Admited to [facility]. Will go to [id number]. Belongings list completed. Report to GEE CASE.
[2019-07-14 03:53] VITALS: BP 142/93
--- NOTE | 2019-07-14 03:53 | NUR ---
RECEIVED FROM ER PER GLORIA AWAKE AND ALERT. ORIENTED X 4. ABLE TO WALK BY HIMSELF INSIDE ROOM. ROM X 4. CLEAR SPEECH. DX. OF CELLULITIS TO RIGHT ARM WITH WOUND PRESENT. ABLE TO VERBALIZE NEEDS WELL IN BULGARIAN. CARE PLANS FOR THE NIGHT DISCUSSED WITH HIM AND CALL LIGHT USE EXPLAINED AND PLACED BESIDE HIM. IVF SITE TO LFA #18 INTACT AND WITH GOOD BLOOD RETURN. SCAB NOTED TO LEFT LEG. MRSA NARES SWAB SENT TO LAB. HISTORY MRSA NARES.
[2019-07-14] MEDS: NACL 0.9% 1,000 ML IV SCH ×2 (04:11→18:19)
--- NOTE | 2019-07-14 04:30 | NUR ---
PT. NOTED WITH DRY SCABS TO MULTIPLE PARTS OF THE BODY. CHARGE NURSE AWARE.
--- NOTE | 2019-07-14 05:35 | NUR ---
WOUND TO RIGHT ARM CLEANSED WITH SOAP AND WATER , RINSED WITH NS AND APPLIED ADAPTIC FOLLOWED BY DRY 4X4 AND SECURED WITH PAPER TAPE. RESIDENT AWARE .
--- NOTE | 2019-07-14 06:45 | NUR ---
SLEEPING AT THIS TIME. NO RESTLESSNESS. CALL LIGHT WITH IN REACH. A/O X 4. ROM X 4. ORIENTED X 4. CLEAR SPEECH. WILL ENDORSE TO AM RN FOR CONTINUITY OF CARE.
--- NOTE | 2019-07-14 07:34 | NUR ---
RECEIVED HAND OFF REPORT FROM PM RN PT APPEARS STABLE AND IN NO APPARENT DISTRESS. ALL SAFETY MEASURES ARE IN PLACE WILL CONTINUE TO MONITOR.
[2019-07-14 07:37] LABS: ANION GAP 7.6 (8-16); CARBON DIOXIDE 28.2 mmol/L (21-32); CREATININE 0.7 mg/dL (0.7-1.3); POTASSIUM 3.8 mmol/L (3.5-5.1)
[2019-07-14 07:45] LABS: BASOPHILS # (AUTO) 0.1 K/uL (0.00-0.22); BASOPHILS % (AUTO) 0.7 % (0.0-2.0); EOSINOPHILS # (AUTO) 0.1 K/uL (0-0.4); EOSINOPHILS % (AUTO) 1.4 % (0.0-4.0); HEMATOCRIT 34.3 % (36-52); HEMOGLOBIN 11.2 g/dL (12.0-18.0); LYMPHOCYTES # (AUTO) 1.5 K/uL (2.0-11.5); LYMPHOCYTES % (AUTO) 14.7 % (20.5-51.1); MEAN CORPUSCULAR HEMOGLOBIN 30 pg (27-31); MEAN CORPUSCULAR HGB CONC 33 g/dL (33-37); MEAN CORPUSCULAR VOLUME 90.5 fL (80-94); MONOCYTES # (AUTO) 1.2 K/uL (0.8-1.0); MONOCYTES % (AUTO) 12.3 % (1.7-9.3); NEUTROPHILS # (AUTO) 7.1 K/uL (1.8-7.7); NEUTROPHILS % (AUTO) 70.9 % (42.2-75.2); PLATELET COUNT (AUTO) 230 K/uL (140-450); RED CELL DISTRIBUTION WIDTH 13.9 % (11.6-13.7); WHITE BLOOD COUNT (AUTO) 10.1 K/uL (4.8-10.8)
[2019-07-14 08:15] VITALS: BP 146/91
[2019-07-14] MEDS ORDERED: fentaNYL 0.05 MG/ML VIAL ONE (10:03)
--- NOTE | 2019-07-14 10:05 | NUR ---
PT TAKEN OFF UNIT FOR OR PROCEDURE. CONSENT SIGNED AND IN CHART. PT APPEARS STABLE AND IN NO APPARENT DISTRESS. ALL SAFETY MEASURES ARE IN PLACE
[2019-07-14] MEDS ORDERED: ONDANSETRON 4 MG/2 ML VIAL ONE (10:18)
[2019-07-14] MEDS ORDERED: KETOROLAC 30 MG/ML VIAL ONE (10:18)
[2019-07-14] MEDS ORDERED: PROPOFOL 200 MG/20 ML VIAL IV ONE (10:18)
[2019-07-14] MEDS ORDERED: SEVOFLURANE 250 ML BTL INH ONE (10:18)
[2019-07-14] MEDS ORDERED: DEXAMETHASONE 4 MG/ML VIAL ONE (10:18)
[2019-07-14] MEDS ORDERED: HYDROmorphone 1 MG/ML AMP IVP PRN (10:20)
[2019-07-14] MEDS ORDERED: ONDANSETRON 4 MG/2 ML VIAL IVP PRN (10:20)
[2019-07-14] MEDS ORDERED: BUPIVACAINE-MPF 0.5% 30 ML VIAL INJ ONE (10:40)
[2019-07-14] MEDS ORDERED: LIDOCAINE 1% 500 MG/50 ML VIAL ONE (10:40)
--- NOTE | 2019-07-14 11:46 | NUR ---
PT ARRIVED BACK ON THE UNIT PT AWAKE AND TALKING PT APPEARS STABLE AND IN NO APPARENT DISTRESS. ALL SAFETY MEASURES ARE IN PLACE WILL CONTINUE TO MONITOR
[2019-07-14] MEDS: VANCOMYCIN 1,000 MG in DEXTROSE 5% 250 ML IV SCH ×2 (12:12→22:43)
[2019-07-14 12:34] VITALS: BP 154/76
--- NOTE | 2019-07-14 13:22 | NUR ---
PATIENT HAS BEEN SCREENED AND CATEGORIZED HIGH NUTRITION RISK. PATIENT WILL BE SEEN WITHIN 1-2 DAYS OF ADMISSION. 07/14/19 - 07/15/19 LEA JENNINGS MBA, RD
--- NOTE | 2019-07-14 14:59 | NUR ---
FREQUENT ROUNDING ON PT PT APPEARS STABLE AND IN NO APPARENT DISTRESS. ALL SAFETY MEASURES ARE IN PLACE WILL CONTINUE TO MONITOR
[2019-07-14 16:30] VITALS: BP 164/78
--- NOTE | 2019-07-14 17:46 | NUR ---
FREQUENT ROUNDING ON PT PT APPEARS STABLE AND IN NO APPARENT DISTRESS. ALL SAFETY MEASURES ARE IN PLACE WILL CONTINUE TO MONITOR.
--- NOTE | 2019-07-14 19:17 | NUR ---
RECIEVED PT. AAOX4, NID , IV SITE INTACT AND PATENT , WITH OLD SCABS ON LEFT ARM AND LEFT LEG , POST I & D OF RIGHT FOREARM . ON SAFETY PRECAUTION PROTOCOL - CALL LIGHT WITH IN REACH . PLAN OF CARE DISCUSSED AND VERBALIZE UNDERSTANDING . WILL CONT. TO MONITOR.
--- NOTE | 2019-07-14 19:17 | NUR ---
endorsed pt to pm rn pt appears stable and in no apparent distress. all safety measures are in place ivf infusing iv site patent and shows no signs of infiltration or inflammation.
[2019-07-14 20:00] VITALS: BP 140/90
--- NOTE | 2019-07-14 22:00 | NUR ---
MADE ROUNDS , NO FURTHER COMPLAIN MADE - BERABLE PAIN HE SAID , WILL CONT. TO MONITOR. CALL LIGHT WITHIN REACH
[2019-07-15] VITALS: BP 142/90
--- NOTE | 2019-07-15 | NUR ---
MADEB ROUNDS , NO SIGNS OF DISTRESS NOTED AT THIS TIME , WILL CONT. TO MONITOR - CALL LIGHT WITHIN REACH.
--- NOTE | 2019-07-15 04:00 | NUR ---
MADE ROUNDS , NO SIGNS OF DISTRESS NOTED AT THIS TIME . WILL CONT. TO MONITOR. CALL LIGHT WITHIN REACH
--- NOTE | 2019-07-15 07:25 | NUR ---
RECEIVED REPORT FROM SUSTAINABLE SYSTEMS ANALYST NURSE. PT AAOX4, NO C/O PAIN, VSS. PT STATES "MY RT ARM LOOKS BETTER" WHEN ASKED ABOUT THE SWELLING. IV ON LT FA 18 GA RUNNING IVF PER ORDER. RESPIRATIONS EVEN AND UNLABORED ON RA. ACTIVE BS, SOFT ABD. SAFETY MEASURES IN PLACE, BED ON LOW POSITION, CALL LIGHT WITHIN REACH. REVIEWED POC WITH PT, PT VERBALIZED UNDERSTANDING.
[2019-07-15 07:39] LABS: CHOL/HDL RATIO 2.2 (1-4.5)
[2019-07-15 08:00] VITALS: BP 141/88
[2019-07-15 09:30] LABS: ANION GAP 9.4 (8-16); CARBON DIOXIDE 26.3 mmol/L (21-32); CREATININE 0.9 mg/dL (0.7-1.3); POTASSIUM 3.7 mmol/L (3.5-5.1)
--- NOTE | 2019-07-15 09:40 | NUR ---
PT IS ASLEEP IN BED, AROUSABLE TO NAME. NOTED THAT PT FINISHED 100% OF BREAKFAST TRAY. WILL CONTINUE TO MONITOR.
[2019-07-15] MEDS: NACL 0.9% 1,000 ML IV SCH (10:22)
[2019-07-15 10:38] LABS: BASOPHILS % (AUTO) 0.2 % (0.0-2.0); EOSINOPHILS % (AUTO) 0.4 % (0.0-4.0); HEMATOCRIT 34.2 % (36-52); HEMOGLOBIN 11.1 g/dL (12.0-18.0); LYMPHOCYTES # (AUTO) 1.5 K/uL (2.0-11.5); LYMPHOCYTES % (AUTO) 12.4 % (20.5-51.1); MEAN CORPUSCULAR HEMOGLOBIN 29 pg (27-31); MEAN CORPUSCULAR HGB CONC 32 g/dL (33-37); MEAN CORPUSCULAR VOLUME 90.4 fL (80-94); MONOCYTES # (AUTO) 0.8 K/uL (0.8-1.0); MONOCYTES % (AUTO) 6.1 % (1.7-9.3); NEUTROPHILS % (AUTO) 80.9 % (42.2-75.2); PLATELET COUNT (AUTO) 264 K/uL (140-450); RED BLOOD CELL COUNT(AUTO) 3.78 MIL/uL (4.20-6.10); RED CELL DISTRIBUTION WIDTH 13.8 % (11.6-13.7); WHITE BLOOD COUNT (AUTO) 12.4 K/uL (4.8-10.8)
[2019-07-15] MEDS ORDERED: LISINOPRIL 5 MG TAB PO SCH (11:15)
[2019-07-15] MEDS ORDERED: LACTOBACILLUS RHAMNOSUS GG 1 EACH CAP PO SCH (11:30)
[2019-07-15 11:59] VITALS: BP 148/99
[2019-07-15] MEDS: VANCOMYCIN 750 MG in DEXTROSE 5% 250 ML IV SCH ×2 (11:59→18:40)
--- NOTE | 2019-07-15 11:59 | NUR ---
ADMINISTERED IV VANCO, CULTURELLE AND ZESTRIL PER ORDER, PT IS AWARE OF INDICATIONS AND POTENTIAL SIDE EFFECTS. PT HAS NO SIGNS OF DISTRESS AT THIS TIME.
--- NOTE | 2019-07-15 12:04 | NUR ---
WOUND CONSULT PENDING, S/P SURGICAL WOUND LESS THAN 24 HOURS.
--- NOTE | 2019-07-15 13:15 | NUR ---
WOUND CARE AND DRESSING CHANGES DONE TO RT ARM. PT TOLERATED WELL.
--- NOTE | 2019-07-15 13:18 | NUR ---
07/15/19 RD INITIAL ASSESSMENT COMPLETED PLEASE REFER TO NUTRITION ASSESSMENT UNDER CARE ACTIVITY FOR ESTIMATED NUTRITIONAL NEEDS. 1. CONTINUE REGULAR DIET TOLERATED 2. PROVIDE DOUBLE PORTIONS PER MEAL 3. RECOMMEND INCREASING PROTEIN NEEDS TO 70 GM/DAY 4. RD TO FOLLOW-UP 5-7 DAYS, LOW RISK GIA KELLY, RD
[2019-07-15] MEDS: MORPHINE SULFATE 2 MG/ML SYR IVP PRN ×2 (15:12→21:28)
--- NOTE | 2019-07-15 15:12 | NUR ---
PT GIVEN MORPHINE PER ORDER FOR LEVEL 7/10 PAIN TO RT ARM. WILL REASSESS WITHIN 1 HOUR.
[2019-07-15 16:00] VITALS: BP 145/91
--- NOTE | 2019-07-15 18:40 | NUR ---
ADMINISTERED IV VANCOMYCIN PER ORDER AND NORCO FOR PAIN. PT IS AWARE OF INDICATIONS AND POTENTIAL SIDE EFFECTS OF MEDICATIONS. PT HAS NO SIGNS OF DISTRESS AT THIS TIME.
--- NOTE | 2019-07-15 19:18 | NUR ---
ENDORSED PT TO WELDER FABRICATOR NURSE. PT HAS NO SIGNS OF DISTRESS AT THIS TIME.
--- NOTE | 2019-07-15 19:18 | NUR ---
RECEIVED ENDORSEMENT FROM DAYSHIFT NURSE AT BEDSIDE FOR CONTINUITY OF CARE, PT IN STABLE CONDITION.
--- NOTE | 2019-07-15 21:30 | NUR ---
PT IN LOW BED WIT SIDE RAILS UP X2 AND CALL LUCERO IN REACH. PT HAS IV SITE ON LEFT F/A 18 GUAGE RUNNING NS 60MLS HR. PT HAS DRY DRESSING INTACT AND RIGHT ARM NO DRAINAGE NOTED. PT RIGHT HAND HAS SOME DEPENDENT EDEMA NON PITTING. CAP REFILL IS 2 SECONDS HANDS WARM TO THE TOUCH. PT C/O 7/10 PAIN IN RIGHT ARM AND WAS GIVEN ORDERED IVP MORPHINE FOR PAIN. V/S FOLLOWS T 97.5 P 82 R 18 B/P 137/84 02 97% ON ROOM AIR. CALL LUCERO IN REACH AND ALL REQUESTED NEEDS ATTENDED BY STAFF.
--- NOTE | 2019-07-16 | NUR ---
PT IN BED ASLEEP NO C/O VOICED BED LOW AND SIDE RAISED UP X2. IV SITE IN TACT AND RUNNING N/S AT 60MLS HR. V/S FOLLOWS T 97.7 P 74 R 18 B/P 155/91 02 99% ON ROOM AIR.
--- NOTE | 2019-07-16 03:00 | NUR ---
PT IN BED SLEEPING NO S/S OF PAIN OR DISTRESS NOTED. VANCOMYCIN HUNG AND RUNNING AT 165MLS/HR.
[2019-07-16] MEDS: VANCOMYCIN 750 MG in DEXTROSE 5% 250 ML IV SCH ×3 (03:38→18:39)
[2019-07-16] MEDS: NACL 0.9% 1,000 ML IV SCH ×2 (03:44→20:17)
--- NOTE | 2019-07-16 07:20 | NUR ---
RECEIVED REPORT FORM POOL SERVICER NURSE. PT AAOX4. REPORTS TOLERABLE PAIN OF 3/10 TO RT ELBOW. BLOOD PRESSURE IS ELEVATED 157/98, WILL ADMINISTER ANTIHYPERTENSIVE MEDICATION. IV ON LT FA 18 GA RUNNING IVF PER ORDER. ACTIVE BS, SOFT ABD. DRESSING TO RT ARM IS CLEAN, DRY AND INTACT. PT AMBULATES INDEPENDENTLY WITH STEADY GAIT. REVIEWED POC WITH PT, PT VERBALIZED UNDERSTANDING.
[2019-07-16 08:00] VITALS: BP 157/98
[2019-07-16 08:11] LABS: BASOPHILS % (AUTO) 0.4 % (0.0-2.0); EOSINOPHILS # (AUTO) 0.1 K/uL (0-0.4); EOSINOPHILS % (AUTO) 1.7 % (0.0-4.0); HEMATOCRIT 34.2 % (36-52); HEMOGLOBIN 11.2 g/dL (12.0-18.0); LYMPHOCYTES # (AUTO) 1.9 K/uL (2.0-11.5); MEAN CORPUSCULAR HEMOGLOBIN 30 pg (27-31); MEAN CORPUSCULAR HGB CONC 33 g/dL (33-37); MEAN CORPUSCULAR VOLUME 90.1 fL (80-94); MONOCYTES # (AUTO) 0.6 K/uL (0.8-1.0); MONOCYTES % (AUTO) 9.6 % (1.7-9.3); NEUTROPHILS % (AUTO) 60.3 % (42.2-75.2); PLATELET COUNT (AUTO) 285 K/uL (140-450); RED BLOOD CELL COUNT(AUTO) 3.79 MIL/uL (4.20-6.10); RED CELL DISTRIBUTION WIDTH 13.8 % (11.6-13.7); WHITE BLOOD COUNT (AUTO) 6.6 K/uL (4.8-10.8)
[2019-07-16] MEDS: LACTOBACILLUS RHAMNOSUS GG 1 EACH CAP PO SCH (08:13)
[2019-07-16] MEDS: LISINOPRIL 5 MG TAB PO SCH (08:14)
[2019-07-16] MEDS: MORPHINE SULFATE 2 MG/ML SYR IVP PRN ×2 (08:14→14:16)
--- NOTE | 2019-07-16 08:14 | NUR ---
ADMINISTERED LACTOBACILLUS AND ZESTRIL PER ORDER, PT IS AWARE OF INDICATIONS AND POTENTIAL SIDE EFFECTS OF MEDICATIONS. ALSO GIVEN MORPHINE FOR LEVEL 7/10 PAIN TO RT ARM. WILL REASSESS WITHIN 1 HOUR.
[2019-07-16 08:33] LABS: MAGNESIUM 1.7 mg/dL (1.8-2.4); PHOSPHORUS 3.7 mg/dL (2.5-4.9)
[2019-07-16 08:39] LABS: ANION GAP 7.4 (8-16); CARBON DIOXIDE 28.4 mmol/L (21-32); CREATININE 0.8 mg/dL (0.7-1.3); POTASSIUM 3.8 mmol/L (3.5-5.1)
--- NOTE | 2019-07-16 11:54 | NUR ---
PT GIVEN Addendum: 07/16/19 at 1544 by Neda Lau RN CONTINUATION 07/16/19 1154 PT GIVEN IV VANCO, PT IS AWARE OF INDICATION AND POTENTIAL SIDE EFFECTS.
[2019-07-16] MEDS ORDERED: MAGNESIUM OXIDE 400 MG TAB PO SCH (12:04)
[2019-07-16 12:30] VITALS: BP 136/90
--- NOTE | 2019-07-16 12:45 | NUR ---
PT GIVEN ICE CREAM WITH LUNCH PER REQUEST. PT HAS NO SIGNS OF DISTRESS AT THIS TIME.
--- NOTE | 2019-07-16 14:16 | NUR ---
ADMINISTERED MORPHINE FOR PAIN LEVEL 7/10 TO RT ARM. DRESSINGS CHANGED -CLEAN, DRY AND INTACT. WILL REASSESS WITHIN 1 HOUR.
[2019-07-16 16:00] VITALS: BP 145/95
--- NOTE | 2019-07-16 16:23 | NUR ---
B/P 145/95, PT HAS HX OF HTN AND TAKES ANTIHYPERTENSIVES. PT IS NON-SYMPTOMATIC. WILL CONTINUE TO MONITOR.
--- NOTE | 2019-07-16 19:25 | NUR ---
ENDORSED PT TO ACCOUNTANT HELPER NURSE. PT HAS NO SIGNS OF DISTRESS AT THIS TIME.
--- NOTE | 2019-07-16 19:30 | NUR ---
RECEIVED BEDSIDE REPORT FROM AM SHIFT RN MANUEL, FOR PT'S CONTINUITY OF CARE. PT IS LYING DOWN, AAOX4, AMBULATORY, WATCHING TV, WITH NO COMPLAINS OF PAIN OR DISCOMFORT. PT IS ON ROOM AIR, HAS A LEFT FA 18G, RIGHT ARM CELLULITIS DRESSING IS DRY AND INTACT, EXPLAINED TO PT THE LASERIST ROUTINE, PT VERBALIZED UNDERSTANDING. BED IS ON LOW POSITION, SIDE RAILS ARE UP, AND CALL LIGHT IS WITHIN REACH. WILL MONITOR PT THROUGHOUT SHIFT.
[2019-07-16] MEDS ORDERED: MUPIROCIN CA NASAL 2% 1GM TUBE NS SCH (20:45)
[2019-07-16] MEDS ORDERED: CHLORHEXADINE GLUC 2% CLOTH TP SCH (20:45)
--- NOTE | 2019-07-16 21:40 | NUR ---
ADMINISTERED CHLORHEXIDINE WIPES AND BACTROBAN NASAL OINTMENT ORDERED. PT RESTING WATCHING TV AND DENIES ANY PAIN AT THIS TIME. WILL CONTINUE TO MONITOR PT.
--- NOTE | 2019-07-16 21:50 | NUR ---
PT RECEIVED PHONE CALL FROM SISTER. PT WAS ASLEEP, REDIRECTED PHONE CALL TO ROOM, PT ACCEPTED PHONE CALL.
[2019-07-17] VITALS: BP 143/94
--- NOTE | 2019-07-17 | NUR ---
VS CHECKED AND CHARTED. PT WAS ASLEEP, WOKE UP AND DENIES ANY PAIN AT THIS TIME. WOUND ASSESSMENT DONE. DRESSING IS DRY AND INTACT. WILL CONTINUE TO MONITOR PT.
--- NOTE | 2019-07-17 02:30 | NUR ---
MADE ROUNDS. PT LYING DOWN ASLEEP, WITH NO SIGNS OF DISTRESS. WILL CONTINUE TO MONITOR PT.
[2019-07-17] MEDS: VANCOMYCIN 750 MG in DEXTROSE 5% 250 ML IV SCH ×2 (03:04→11:33)
--- NOTE | 2019-07-17 03:04 | NUR ---
ADMINISTERED SCHEDULED IV ABX ORDERED. VERIFIED THE DOSE WITH PHARMACY, PER PHARMACY, OK TO ADMINISTER. PT ASLEEP WITH NO SIGNS OF DISTRESS. WILL CONTINUE TO MONITOR PT.
--- NOTE | 2019-07-17 06:30 | NUR ---
PT ASLEEP WITH NO SIGNS OF DISTRESS. WILL ENDORSE TO AM SHIFT RN FOR CONTINUITY OF CARE.
[2019-07-17 07:29] LABS: BASOPHILS % (AUTO) 0.7 % (0.0-2.0); EOSINOPHILS # (AUTO) 0.1 K/uL (0-0.4); EOSINOPHILS % (AUTO) 1.8 % (0.0-4.0); HEMATOCRIT 34.3 % (36-52); HEMOGLOBIN 11.5 g/dL (12.0-18.0); LYMPHOCYTES # (AUTO) 1.8 K/uL (2.0-11.5); LYMPHOCYTES % (AUTO) 28.9 % (20.5-51.1); MEAN CORPUSCULAR HEMOGLOBIN 30 pg (27-31); MEAN CORPUSCULAR HGB CONC 33 g/dL (33-37); MEAN CORPUSCULAR VOLUME 89.7 fL (80-94); MONOCYTES # (AUTO) 0.5 K/uL (0.8-1.0); NEUTROPHILS # (AUTO) 3.8 K/uL (1.8-7.7); NEUTROPHILS % (AUTO) 60.6 % (42.2-75.2); PLATELET COUNT (AUTO) 310 K/uL (140-450); RED BLOOD CELL COUNT(AUTO) 3.82 MIL/uL (4.20-6.10); RED CELL DISTRIBUTION WIDTH 14.1 % (11.6-13.7); WHITE BLOOD COUNT (AUTO) 6.3 K/uL (4.8-10.8)
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
[2019-07-17 08:01] LABS: ANION GAP 11.8 (8-16); CREATININE 0.8 mg/dL (0.7-1.3); POTASSIUM 3.8 mmol/L (3.5-5.1)
[2019-07-17 08:10] VITALS: BP 154/93
[2019-07-17 09:02] LABS: MAGNESIUM 1.8 mg/dL (1.8-2.4); PHOSPHORUS 3.3 mg/dL (2.5-4.9)
--- NOTE | 2019-07-17 09:40 | NUR ---
ADMINISTERED MORNING MEDS TO PT. PT TOLERATED THEM WELL. WILL CONTINUE TO ROUND FREQUENTLY ON PT. BED IN LOW POSITION, CALL LIGHT WITHIN REACH.
[2019-07-17] MEDS: LISINOPRIL 5 MG TAB PO SCH (09:48)
[2019-07-17] MEDS: LACTOBACILLUS RHAMNOSUS GG 1 EACH CAP PO SCH (09:48)
[2019-07-17] MEDS ORDERED: LACT10CA PO (10:40)
[2019-07-17] MEDS ORDERED: CHLO118S2 TP (10:40)
[2019-07-17] MEDS ORDERED: LISI-424 PO (10:40)
[2019-07-17] MEDS ORDERED: MUPI2CRE22 NS (10:40)
[2019-07-17] MEDS ORDERED: SULF-59 PO (10:41)
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
[2019-07-17] MEDS ORDERED: LACT10CA1 PO (11:40)
--- NOTE | 2019-07-17 11:47 | NUR ---
PT RESTING IN BED WATCHING TV. ALL NEEDS MET. PT DENIES PAIN. WILL CONTINUE TO ROUND FREQUENTLY ON PT. BED IN LOW POSITION, CALL LIGHT WITHIN REACH.
[2019-07-17] MEDS: NACL 0.9% 1,000 ML IV SCH (12:57)
--- NOTE | 2019-07-17 13:47 | NUR ---
PT DISCHARGED HOME FOR SELF CARE. PT DISCHARGE TEACHING EXPLAINED TO PT. IMPORTANCE OF WOUND CARE AND INSTRUCTIONS ON HOW TO DO WOUND CARE WERE GIVEN. IMPORTANCE OF ABX THERAPY WAS EXPLAINED TO PT. PT VERBALIZED UNDERSTANDING. ALSO NOTED UPCOMING FOLLOW-UP APPT TO PT. PT VERBALIZED ALL DISCHARGE TEACHING. IV REMOVED WITH TIP INTACT. WRIST BANDS REMOVED AND PLACED IN SHRED BIN. ALL PERSONAL BELONGINGS TAKEN WITH PT. WOUND CARE SUPPLIES AND CHG WIPES GIVEN TO PT PER WOUND CARE NURSE AND MD'S ORDERS. PT LEFT IN STABLE CONDITION ACCOMPANIED BY FAMILY.
== END 2019-07-17 13:45 | disposition home or self-care (01) | DRG 571 ==
LOC: MED 22:48 → MTU 07-14 01:37
PROVIDERS: ADMIT Family Medicine; ATTEND Family Medicine
PROC: 0JBD0ZZ Excision of Right Upper Arm Subcutaneous Tissue and Fascia, Open Approach (ICD-10-PCS; principal; 2019-07-14 09:45)
DX: L03.113 Cellulitis of right upper limb (principal); I96 Gangrene, not elsewhere classified; E44.0 Moderate protein-calorie malnutrition; E87.1 Hypo-osmolality and hyponatremia; L02.413 Cutaneous abscess of right upper limb; I10 Essential (primary) hypertension; F12.90 Cannabis use, unspecified, uncomplicated; F19.10 Other psychoactive substance abuse, uncomplicated; Z68.23 Body mass index [BMI] 23.0-23.9, adult; E87.6 Hypokalemia; E83.42 Hypomagnesemia; B95.62 Methicillin resistant Staphylococcus aureus infection as the cause of diseases classified elsewhere
CPT/HCPCS: 36415; 71045; 73030; 73201; 76881; 80048; 80053; 80202; 80305; 81001; 82150; 83036; 83605; 83690; 83735; 83880; 84100; 84134; 84439; 84443; 84484; 85025; 85610; 85730; 86886; 86900; 86901; 87040; 87070; 87075; 87081; 87086; 87186; 87205; 88304; 93005; 93970; 93971; 96365; 96367; 96375; 99285; J1100; J1885; J2001; J2270; J2405; J2543; J2704; J3010; J3370; J3490; J7030; J7060; Q0092; Q9967

== ENCOUNTER 2020-08-16 15:40 | Emergency (ER) | payer MEDICAID ==
[~2020-08-16] VITALS: Ht 175.3 cm; Wt 73.0 kg
[~2020-08-16 15:40] MED LIST changes: +BACITRACIN ZINC/POLYMYXIN B OINT 30 GM TUBE TP SCH; -CEPH-1019 PO; +CHLO118S2 TP; -INUL1CTB PO; +LACT10CA1 PO; +LISI-424 PO; +MUPI2CRE22 NS
[2020-08-16 15:45] VITALS: BP 148/92
[2020-08-16] MEDS ORDERED: MIDAZOLAM 2 MG/2 ML VIAL IVP ONE (16:00)
[2020-08-16] MEDS ORDERED: fentaNYL citrate 0.05 MG/ML VIAL IVP ONE ×2 (16:00→17:05)
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
[2020-08-16] MEDS ORDERED: NEOMYCIN/POLYMYXIN/BACITRACIN OIN 15 GM TUBE TP SCH (16:19)
[2020-08-16] MEDS ORDERED: NEOMYCIN/POLYMYXIN/BACITRACIN OIN 15 GM TUBE TP ONE (16:20)
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
[2020-08-16 17:50] VITALS: BP 148/92
--- NOTE | 2020-08-16 17:51 | NUR ---
Patient discharged with v/s stable. Written and verbal after care instructions given and explained. Patient alert, oriented and verbalized understanding of instructions. Ambulatory with steady gait. All questions addressed prior to discharge. ID band removed. Patient advised to follow up with PMD. Rx of TYLENOL, BACITRACIN, IBUPROFEN given. Patient educated on indication of medication including possible reaction and side effects. Opportunity to ask questions provided and answered.
[2020-08-17] MEDS ORDERED: BACITRACIN ZINC/POLYMYXIN B OINT 30 GM TUBE TP SCH (09:00)
== END 2020-08-16 17:51 | disposition home or self-care (01) ==
LOC: MED 15:40
DX: T22.211A Burn of second degree of right forearm, initial encounter (principal); T20.25XA Burn of second degree of scalp [any part], initial encounter; T31.0 Burns involving less than 10% of body surface; X08.8XXA Exposure to other specified smoke, fire and flames, initial encounter; Y93.89 Activity, other specified; Y92.89 Other specified places as the place of occurrence of the external cause; Y99.8 Other external cause status
CPT/HCPCS: 16020; 90471; 90715; 99152; 99285; J2250; J3010

== ENCOUNTER 2020-08-17 15:04 | Emergency (ER) | payer MEDICAID ==
[~2020-08-17] VITALS: Ht 175.3 cm; Wt 72.6 kg
[~2020-08-17 15:04] MED LIST changes: -BACITRACIN ZINC/POLYMYXIN B OINT 30 GM TUBE TP SCH
[2020-08-17 15:11] VITALS: BP 166/85
--- NOTE | 2020-08-17 15:17 | NUR ---
PT AMB TO BED 6.
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
[2020-08-17] MEDS ORDERED: HYDROcodone/APAP 10/325 MG 1 TAB TAB PO ONE (15:30)
[2020-08-17 15:54] VITALS: BP 166/85
--- NOTE | 2020-08-17 15:55 | NUR ---
Patient discharged with v/s stable. Written and verbal after care instructions given and explained. Patient alert, oriented and verbalized understanding of instructions. Ambulatory with steady gait. All questions addressed prior to discharge. ID band removed. Patient advised to follow up with PMD. Rx of norco 5mg-325mg tablet Q4h PRN pain given. Patient educated on indication of medication including possible reaction and side effects. Opportunity to ask questions provided and answered.
== END 2020-08-17 15:55 | disposition home or self-care (01) ==
LOC: MED 15:04
DX: T22.20XD Burn of second degree of shoulder and upper limb, except wrist and hand, unspecified site, subsequent encounter (principal); T20.25 Burn of second degree of scalp [any part]; E11.9 Type 2 diabetes mellitus without complications; I10 Essential (primary) hypertension; Z79.899 Other long term (current) drug therapy; X58.XXXD Exposure to other specified factors, subsequent encounter
CPT/HCPCS: 16020; 99283

== ENCOUNTER 2020-08-18 14:48 | Emergency (ER) | payer MEDICAID ==
[~2020-08-18] VITALS: Ht 175.3 cm; Wt 67.1 kg
[2020-08-18 14:54] VITALS: BP 146/85
[2020-08-18] MEDS ORDERED: KETOROLAC 30 MG/ML VIAL IM ONE (15:50)
[2020-08-18] MEDS ORDERED: BACITRACIN OINT 500 UNITS/GM PKT TP ONE (15:50)
[2020-08-18 16:45] VITALS: BP 146/85
== END 2020-08-18 16:45 | disposition home or self-care (01) ==
LOC: MED 14:48
DX: T22.011A Burn of unspecified degree of right forearm, initial encounter (principal); E11.9 Type 2 diabetes mellitus without complications; I10 Essential (primary) hypertension; Z48.00 Encounter for change or removal of nonsurgical wound dressing; Z79.899 Other long term (current) drug therapy
CPT/HCPCS: 96372; 99283; J1885

== ENCOUNTER 2020-08-19 23:50 | Emergency (ER) | payer MEDICAID ==
[~2020-08-19] VITALS: Ht 175.3 cm; Wt 77.6 kg
[2020-08-19 23:54] VITALS: BP 165/96
--- NOTE | 2020-08-19 23:58 | NUR ---
PT AMBULATED TO ED BED 8.
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
--- NOTE | 2020-08-20 00:30 | NUR ---
KIM KONG AT BEDSIDE EVALUATING PT.
--- NOTE | 2020-08-20 00:41 | NUR ---
ER MD RE-EVALUATING PT AT BEDSIDE FOR PROCEDURE.
[2020-08-20] MEDS ORDERED: SILVER SULFADIAZINE 1% 50 GM JAR TP ONE (01:05)
[2020-08-20] MEDS ORDERED: IBUPROFEN 800 MG TAB PO ONE (01:10)
[2020-08-20] MEDS ORDERED: SULFAMETH/TRIMETH DS 800/160MG 1 TAB PO ONE (01:15)
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
[2020-08-20 01:30] VITALS: BP 140/80
--- NOTE | 2020-08-20 01:30 | NUR ---
Patient discharged with v/s stable. Written and verbal after care instructions given and explained. Patient alert, oriented and verbalized understanding of instructions. Ambulatory with steady gait. All questions addressed prior to discharge. ID band removed. Patient advised to follow up with PMD. Rx of BACTRIM, MOTRIN, TYLENOL EXTRA STRENGTH, & SILVADENE given. Patient educated on indication of medication including possible reaction and side effects. Opportunity to ask questions provided and answered.
== END 2020-08-20 01:30 | disposition home or self-care (01) ==
LOC: MED 23:50
DX: T22.011A Burn of unspecified degree of right forearm, initial encounter (principal); E11.9 Type 2 diabetes mellitus without complications; I10 Essential (primary) hypertension; F12.90 Cannabis use, unspecified, uncomplicated; F17.200 Nicotine dependence, unspecified, uncomplicated; Z79.899 Other long term (current) drug therapy
CPT/HCPCS: 99283

== ENCOUNTER 2020-08-21 22:02 | Emergency (ER) | payer MEDICAID ==
[~2020-08-21] VITALS: Ht 175.3 cm; Wt 74.4 kg
[2020-08-21 22:30] VITALS: BP 154/93
[2020-08-21] MEDS ORDERED: BACITRACIN OINT 500 UNITS/GM PKT TP ONE ×2 (23:09→23:10)
[2020-08-21] MEDS ORDERED: SILVER SULFADIAZINE 1% 50 GM JAR TP ONE (23:20)
[2020-08-21 23:55] VITALS: BP 169/94
== END 2020-08-21 23:55 | disposition home or self-care (01) ==
LOC: MED 22:02
DX: T22.211A Burn of second degree of right forearm, initial encounter (principal); T22.2 Burn of second degree of shoulder and upper limb, except wrist and hand; T22.131A Burn of first degree of right upper arm, initial encounter; T20.10XA Burn of first degree of head, face, and neck, unspecified site, initial encounter; T22.151A Burn of first degree of right shoulder, initial encounter; E11.9 Type 2 diabetes mellitus without complications; I10 Essential (primary) hypertension; Z79.899 Other long term (current) drug therapy
CPT/HCPCS: 99283

== ENCOUNTER 2020-08-23 23:43 | Emergency (ER) | payer MEDICAID ==
[~2020-08-23] VITALS: Ht 175.3 cm; Wt 72.6 kg
[2020-08-23 23:53] VITALS: BP 157/91
[2020-08-23] MEDS ORDERED: BACITRACIN OINT 500 UNITS/GM PKT TP ONE (23:59)
--- NOTE | 2020-08-24 00:11 | NUR ---
PTS WOUND WRAP CHANGED TO NEW WRAPS. PTS PMSC WNL.
[2020-08-24 00:22] VITALS: BP 157/91
--- NOTE | 2020-08-24 00:22 | NUR ---
Patient discharged with v/s stable. Written and verbal after care instructions given and explained. Patient verbalized understanding. Ambulatory with steady gait. All questions addressed prior to discharge. Advised to follow up with PMD.
== END 2020-08-24 00:22 | disposition home or self-care (01) ==
LOC: MED 23:43
DX: T22.20XD Burn of second degree of shoulder and upper limb, except wrist and hand, unspecified site, subsequent encounter (principal); E11.9 Type 2 diabetes mellitus without complications; I10 Essential (primary) hypertension; F17.210 Nicotine dependence, cigarettes, uncomplicated; Z98.890 Other specified postprocedural states; Z79.899 Other long term (current) drug therapy; X08.8XXD Exposure to other specified smoke, fire and flames, subsequent encounter
CPT/HCPCS: 16020; 99282

== ENCOUNTER 2021-12-18 00:07 | Emergency (ER) | payer MEDICAID ==
[~2021-12-18] VITALS: Ht 172.7 cm; Wt 75.7 kg
[~2021-12-18 00:07] MED LIST changes: -LISI-424 PO; +LISI5TAB24 PO
[2021-12-18 00:20] VITALS: BP 158/100
--- NOTE | 2021-12-18 00:23 | NUR ---
TO LOBBY A/W BED AMBULATORY
--- NOTE | 2021-12-18 01:59 | NUR ---
pt taken to rad.
[2021-12-18 02:17] LABS: HEMATOCRIT 40.8 % (36-52); HEMOGLOBIN 13.5 g/dL (12.0-18.0); MEAN CORPUSCULAR HEMOGLOBIN 30 pg (27-31); MEAN CORPUSCULAR HGB CONC 33 g/dL (33-37); MEAN CORPUSCULAR VOLUME 91.5 fL (80-94); PLATELET COUNT (AUTO) 174 K/uL (140-450); RED BLOOD CELL COUNT(AUTO) 4.46 MIL/uL (4.20-6.10); RED CELL DISTRIBUTION WIDTH 13.8 % (11.6-13.7); WHITE BLOOD COUNT (AUTO) 3.5 K/uL (4.8-10.8)
--- NOTE | 2021-12-18 02:32 | NUR ---
pt taken to bed 09.
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
[2021-12-18 02:54] LABS: EOSINOPHILS % (MANUAL) 1 % (0-4); LYMPHOCYTES % (MANUAL) 32 % (20-46); MONOCYTES % (MANUAL) 16 % (5-12)
[2021-12-18 02:57] LABS: ALBUMIN 3.3 g/dL (3.4-5.0); ANION GAP 7.7 (8-16); CARBON DIOXIDE 32.7 mmol/L (21-32); MAGNESIUM 2.1 mg/dL (1.8-2.4); POTASSIUM 3.4 mmol/L (3.5-5.1); TOTAL BILIRUBIN 0.2 mg/dL (0.0-1.0)
--- NOTE | 2021-12-18 03:17 | NUR ---
ANUSHKA COLLECTED AND TAKEN TO LAB.
[2021-12-18 05:45] VITALS: BP 159/98
== END 2021-12-18 05:45 | disposition home or self-care (01) ==
LOC: MED 00:07
DX: R53.1 Weakness (principal); Z20.822 Contact with and (suspected) exposure to COVID-19; R11.0 Nausea; M79.10 Myalgia, unspecified site; R19.7 Diarrhea, unspecified; E11.9 Type 2 diabetes mellitus without complications; I10 Essential (primary) hypertension; Z79.899 Other long term (current) drug therapy
CPT/HCPCS: 36415; 71045; 80053; 83690; 83735; 84100; 84484; 85025; 93005; 99285